=== PATIENT | male | born 1995 | race Caucasian/White ===

== ENCOUNTER 2019-01-31 07:31 | Outpatient (CLI) | payer OTHER | END 2019-01-31 07:32 | disposition critical access hospital (66) | LOC: EMS 07:31 | PROVIDERS: ATTEND Surgery | DX: R10.9 Unspecified abdominal pain (principal); R19.8 Other specified symptoms and signs involving the digestive system and abdomen | CPT/HCPCS: A0425; A0427 ==

== ENCOUNTER 2019-01-31 08:23 | Emergency (ER) | payer OTHER ==
[2019-01-31] MEDS ORDERED: SOAP SUDS ENEMA 1 EACH RC ONE (08:31)
[2019-01-31 08:32] VITALS: BP 124/79
--- NOTE | 2019-01-31 08:34 | ED Physician Documentation ---
PD HPI ABD PAIN - Stated complaint Stated Complaint: ABD PX - Chief complaint Chief Complaint: Abd Pain - History obtained from History obtained from: Patient - History of Present Illness Timing - onset: How many days ago (several) Timing - duration: Days Timing - details: Gradual onset Severity Comments: moderate Quality: Fullness/distended Location: All over / everywhere Improved by: No: Eating, Laying still, Vomiting, BM, Position, Meds Worsened by: Eating, Palpation Associated symptoms: Constipation. No: Fever, Nausea, Vomiting, Hematemesis, Diarrhea, Melena, Hematochezia, Dysuria Similar symptoms before: Diagnosis (was seen in [facility] yesterday and diagnosed with constipation) Recently seen: Clinic (yesterday) - Treatment prior to arrival Treatment prior to arrival: Took miralax yesterday twice Review of Systems Ten Systems: 10 systems reviewed and negative Constitutional: denies: Fever, Chills Cardiac: reports: Reviewed and negative Respiratory: reports: Reviewed and negative GI: reports: Abdominal Pain, Constipation. denies: Nausea, Vomiting : reports: Reviewed and negative Skin: reports: Reviewed and negative Musculoskeletal: reports: Reviewed and negative Immunocompromised: reports: Reviewed and negative PD PAST MEDICAL HISTORY - Past Medical History Past Medical History: Yes Other Past Medical History: heroin abuse and addiction - Present Medications Home Medications: Ambulatory Orders Medication Instructions Recorded Confirmed No Known Home Medications 01/31/19 01/31/19 - Allergies Allergies/Adverse Reactions: Allergies Allergy/AdvReac Type Severity Reaction Status Date / Time No Known Drug Allergies Allergy Verified 01/31/19 08:31 PD ED PE NORMAL - Vitals Vital signs reviewed: Yes - General General: Alert and oriented X 3, Well developed/nourished, Other (uncomfortable ) - HEENT HEENT: Atraumatic, Moist mucous membranes, Pharynx benign - Neck Neck: Supple, no meningeal sign - Cardiac Cardiac: RRR - Respiratory Respiratory: No respiratory distress - Abdomen Abdomen: Soft, Non tender, Other (mildly distended) - Male Male : Deferred - Rectal Rectal: Deferred - Derm Derm: Normal color, Warm and dry, No rash - Extremities Extremities: No deformity, No edema - Neuro Neuro: Alert and oriented X 3 Eye Opening: Spontaneous Motor: Obeys Commands Verbal: Oriented GCS Score: 15 - Psych Psych: Normal mood, Normal affect Results - Vitals Vitals: Vital Signs - 24 hr 01/31/19 08:28 Temperature 36.9 C Heart Rate 57 L Respiratory 14 Rate Blood Pressure 124/79 O2 Saturation 100 Oxygen O2 Source Room air Procedures - General procedure General procedure: Performed a fecal disimpaction and removed a large amount of stool. Pt's symptoms improved. Pt can continue bowel regimen and is stable for outpt management and discharge. PD MEDICAL DECISION MAKING - ED course Complexity details: re-evaluated patient, considered differential, d/w patient ED course: ddx- constipation, bowel obstruction, fecal impaction. 23 y/o M with constipation secondary to heroin abuse which is active, attempted enema with minimal relief but pt was noted to be impacted. Performed a fecal disimpaction here with marked relief. Pt is now stable for discharge and can continue bowel regimen at home. Departure - Departure Disposition: 01 Home, Self Care Clinical Impression: Fecal impaction in rectum Condition: Stable Record reviewed to determine appropriate education?: Yes Instructions: ED Constipation Follow-Up: your, doctor [Other] - As Needed Comments: You had a fecal impaction today. Continue a bowel regimen of stool softeners and miralax. You should also seek assistance for drug abuse and limit narcotic use to manage your constipation.
== END 2019-01-31 09:50 | disposition home or self-care (01) ==
LOC: EDUNIT# → EDBD → ED 08:23
DX: K59.03 Drug induced constipation (principal); F11.288 Opioid dependence with other opioid-induced disorder
CPT/HCPCS: 99282; 99283; A9270